=== PATIENT | female | born 1985 | race Hispanic/Latino ===

== ENCOUNTER 2018-08-04 21:36 | Emergency (ER) | payer MEDICAID ==
[~2018-08-04] VITALS: Ht 106.7 cm; Wt 43.5 kg
--- NOTE | 2018-08-04 21:49 | Emergency Room Report ---
History of Present Illness General Chief Complaint: Seizure Source: Patient Present Illness HPI Is a 33-year-old female with a history of dwarfism. She also has history of seizure for which she's a Keppra. She presents with chief complaint of syncope. She said she hasn't eaten much today and was thinking about something said. She said she drank some fluid that has a lot of minute. She developed dizziness and had a syncopal episode lasting for about less than 10 second. She is better now. Mom thought it was a seizure. No chest pain. No palpitation. No nausea vomiting. No injury. Denies any other complaint. Similar symptom in the past. Occur in April when she was at a wedding. She did not have enough fluid then. Allergies: Coded Allergies: No Known Allergies (Unverified , 06/20/14) Patient History Past Medical History: see triage record, old chart reviewed, seizures Past Surgical History: other Pertinent Family History: none Social History: Denies: smoking Last Menstrual Period: does not remember Now: No Immunizations: other Reviewed Nursing Documentation: PMH: Agreed; PSxH: Agreed Nursing Documentation-PMH Past Medical History: No History, Except For Hx Seizures: Yes Review of Systems Eye: Denies: eye pain, blurred vision ENT: Denies: ear pain, nose congestion, throat swelling Respiratory: Denies: cough, shortness of breath Cardiovascular: Denies: chest pain, palpitations Gastrointestinal: Denies: abdominal pain, diarrhea, nausea, vomiting Musculoskeletal: Denies: back pain, joint pain Skin: Denies: rash Neurological: Denies: headache, numbness Endocrine: Denies: increased thirst, increased urine Hematologic/Lymphatic: Denies: easy bruising All Other Systems: negative except mentioned in HPI Physical Exam Vital Signs Date Time Temp Pulse Resp B/P (MAP) Pulse Ox O2 Delivery O2 Flow Rate FiO2 08/04/18 21:27 98.3 119 18 104/68 98 Room Air 98.2 vitals normal except for tachycardia. Repeat heart rate 98 Sp02 EP Interpretation: reviewed, normal General Appearance: well appearing, no apparent distress, alert Head: normocephalic, atraumatic Eyes: bilateral eye PERRL, bilateral eye EOMI ENT: hearing grossly normal, normal pharynx Neck: full range of motion, supple, no meningismus Respiratory: chest non-tender, lungs clear, normal breath sounds Cardiovascular #1: regular rate, rhythm, no murmur Gastrointestinal: normal bowel sounds, non tender, no mass, no organomegaly, no bruit, non-distended Musculoskeletal: back normal, gait/station normal, normal range of motion Psychiatric: mood/affect normal Skin: warm/dry Medical Decision Making Diagnostic Impression: Primary Impression: Syncope Qualified Codes: R55 - Syncope and collapse ER Course Patient with syncope. No evidence of abnormal rhythm, CVA, TIA, bleed, seizure activity. Patient is back to baseline. We'll discharge home. EKG Diagnostic Results Rate: normal Rhythm: NSR ST Segments: no acute changes Rhythm Strip Diag. Results Rhythm Strip Time: 21:49 EP Interpretation: yes Rate: 98 Rhythm: NSR, no PVC's, no ectopy Last Vital Signs Date Time Temp Pulse Resp B/P (MAP) Pulse Ox O2 Delivery O2 Flow Rate FiO2 08/04/18 21:27 98.3 119 18 104/68 98 Room Air 98.2 Status: improved Disposition: HOME, SELF-CARE Condition: Stable Additional Instructions: Follow-up with your doctor in 7 days. Return if worse. Justin Cheek MD Aug 04, 2018 21:49
[2018-08-04 22:41] VITALS: BP 115/75
--- NOTE | 2018-08-07 14:47 | Cardiology Report ---
APPROVED REPORT EKG Measurement Heart [id number] Sinus tachycardia Otherwise normal ECG
== END 2018-08-04 22:30 | disposition home or self-care (01) ==
LOC: EDBD 21:36 → EMR 22:08
DX: R55 Syncope and collapse (principal); G40.909 Epilepsy, unspecified, not intractable, without status epilepticus; R42 Dizziness and giddiness; E34.3 Short stature due to endocrine disorder
CPT/HCPCS: 93005; 99283

== ENCOUNTER 2019-05-13 01:07 | Emergency (ER) | payer MEDICAID ==
[~2019-05-13] VITALS: Ht 121.9 cm; Wt 40.8 kg
[~2019-05-13 01:07] MED LIST: KEPPRA500 M4 ORAL
[2019-05-13] MEDS ORDERED: levETIRAcetam 500mg/NS100ml 100 ML IVPB ONE (01:15)
--- NOTE | 2019-05-13 01:29 | NUR ---
ED Nurse Note: per mother's statement pt had seizure x 2 today, 10 seconds each, denies injury, no oral trauma noted, pt post ictal upon arrival.
--- NOTE | 2019-05-13 01:29 | NUR ---
ED Nurse Note: PT BROUGHT IN BY [facility] FROM HOME, C/C MULTIPLE EPISODE OF SEIZURES WITNESSED BY MOTHER, PT WAS GIVEN IM 5MG VERSED ON FIELD, [id number] ON FIELD. SINUS TACH ON PARTS SALVAGER, VSS, RESP EVEN AND UNLABORED ON RA, WILL CONT MONITOR, MOTHER AT THE BEDSIDE, SZ PRECAUTION AND APSIRATION PRECAUTION STARTED.
[2019-05-13 01:31] VITALS: BP 118/66
[2019-05-13] MEDS ORDERED: KEPPRA750 MG ORAL (01:49)
--- NOTE | 2019-05-13 01:50 | Emergency Room Report ---
History of Present Illness General Chief Complaint: Seizure Source: Patient, Family Member Present Illness HPI Is a 34-year-old female with a history of dwarfism and seizure. She has been on Keppra 500 mg twice a day for over 4 years. She has infrequent seizure. Last seizure was about a month ago. She had 2 seizure tonight. She was postictal. There was tonic and clonic in nature. Witnessed by her mom. She does have some oral trauma. No fever chills but no nausea no vomiting. Has been consistent and compliant with her medication. No incontinence of urine. She came by EMS. Allergies: Coded Allergies: No Known Allergies (Unverified , 06/20/14) Patient History Past Medical History: see triage record, old chart reviewed, seizures Past Surgical History: none Pertinent Family History: none Social History: Denies: smoking Now: No Immunizations: other Reviewed Nursing Documentation: PMH: Agreed; PSxH: Agreed Nursing Documentation-PMH Past Medical History: No History, Except For Hx Seizures: Yes Review of Systems Eye: Denies: eye pain, blurred vision ENT: Denies: ear pain, nose congestion, throat swelling Respiratory: Denies: cough, shortness of breath Cardiovascular: Denies: chest pain, palpitations Gastrointestinal: Denies: abdominal pain, diarrhea, nausea, vomiting Musculoskeletal: Denies: back pain, joint pain Skin: Denies: rash Neurological: Denies: headache, numbness Endocrine: Denies: increased thirst, increased urine Hematologic/Lymphatic: Denies: easy bruising All Other Systems: negative except mentioned in HPI Physical Exam Vital Signs Date Time Temp Pulse Resp B/P (MAP) Pulse Ox O2 Delivery O2 Flow Rate FiO2 05/13/19 00:54 99.0 108 24 118/66 (83) 100 Room Air Vitals unremarkable Sp02 EP Interpretation: reviewed, normal General Appearance: well appearing, no apparent distress, Postictal Head: normocephalic, atraumatic Eyes: bilateral eye PERRL, bilateral eye EOMI ENT: hearing grossly normal, normal pharynx, other - abrasion to left lateral aspect of tongue. Neck: full range of motion, supple, no meningismus Respiratory: chest non-tender, lungs clear, normal breath sounds Cardiovascular #1: regular rate, rhythm, no murmur Gastrointestinal: normal bowel sounds, non tender, no mass, no organomegaly, no bruit, non-distended Musculoskeletal: back normal, gait/station normal, normal range of motion Psychiatric: mood/affect normal Medical Decision Making Diagnostic Impression: Primary Impression: Epileptic seizure, generalized ER Course Presents with a breakthrough seizure. She is back to baseline now. Keppra given IV here. We will increase her Keppra to 750 mg twice a day. No evidence of any other injury. I see no need for CT scan. She does not drive. I see no need for DMV report. Last Vital Signs Date Time Temp Pulse Resp B/P (MAP) Pulse Ox O2 Delivery O2 Flow Rate FiO2 05/13/19 01:31 105 20 Room Air 05/13/19 01:31 99.0 118/66 100 Status: improved Disposition: HOME, SELF-CARE Condition: Stable Scripts Levetiracetam (KEPPRA) 750 Mg Tablet 750 MG ORAL BID, #60 TAB Prov: Justin Cheek MD 05/13/19 Patient Instructions: Seizure, Adult Additional Instructions: Increase your Keppra to 750 mg twice a day. Follow up with your doctor in a week. Return if symptoms worsen. Justin Cheek MD May 13, 2019 01:50
[2019-05-13 02:28] VITALS: BP 116/56
--- NOTE | 2019-05-13 02:28 | NUR ---
ED Nurse Note: pt cleared to be d/c per ER provider, pt discharge and aftercare instruction provided w/ prescription, pt education done via discussion and handout, pt advised to follow up with pcp or return to ed if changes in condition, vss, ambulatory w/ steady gait, left w/ all belongings, iv d/c and id band removed, pt accompanied by mother.
== END 2019-05-13 02:28 | disposition home or self-care (01) ==
LOC: EDBD 01:07 → EMR 01:30
DX: G40.909 Epilepsy, unspecified, not intractable, without status epilepticus (principal); E34.3 Short stature due to endocrine disorder
CPT/HCPCS: 96374; 99284; J1953